=== PATIENT | female | born 1975 | race Caucasian/White ===

== ENCOUNTER 2019-08-08 05:35 | Inpatient (IN) | payer BC ==
[2019-08-07 14:00] VITALS: BMI 23.1
--- NOTE | 2019-08-08 07:38 | HP ---
History & Physical Update - History History: No Change - Physical Physical: No Change - Assessment Assessment: No Change - Plan Plan: No Change (H&P reviwed , no changes , for supracervical abdominal hysterectomy, bilateral salpingectomy,all necessary procedure)
[2019-08-08] MEDS ORDERED: ROPIVACAINE HCL 0.5% 30ML VIAL ONE (09:03)
[2019-08-08] MEDS ORDERED: MIDAZOLAM HCL 2 MG/2 ML SINGLE DOSE VIAL ONE ×2 (09:04)
[2019-08-08] MEDS ORDERED: ceFAZolin SODIUM 1 GM VIAL IVPB ONE (10:30)
[2019-08-08] MEDS ORDERED: IBUPROFEN 800 MG/8 ML IJ IVPB PRN (11:49)
[2019-08-08] MEDS ORDERED: IBUPROFEN 600 MG TABLET (FP) PO PRN (11:49)
[2019-08-08] MEDS ORDERED: ONDANSETRON 4 MG/2 ML VIAL IVPUSH PRN (11:49)
[2019-08-08] MEDS ORDERED: oxyCODONE HCL 5 MG TABLET PO PRN ×3 (11:49→12:15)
--- NOTE | 2019-08-08 11:54 | OP ---
Operative Note - Note: Operative Date: 08/08/19 Pre-Operative Diagnosis: pelvic pain, anemia, fibroid uterus, menometrorrhagia Operation: supracervical abdominal hysterectomy, bilateral salpingectomy Findings: large uterus, adenomyosis Surgeon: Pranav Greenberg Fireworks Inspector: Gilberto Crabtree Anesthesia: General Estimated Blood Loss (mls): 200 Drains & Tubes with Location: sequeira Drains, Volume Out (mls): 450 Blood Volume Replaced (mls): 0 Fluid Volume Replaced (mls): 1,500 Operative Report Dictated: Yes
--- NOTE | 2019-08-08 12:05 | PN ---
Progress Note (short form) - Note Progress Note: I asisted Dr. Greenberg at open hysterectomy for the entirety of the case.
[2019-08-08] MEDS ORDERED: KETOROLAC TROMETHAMINE 30 MG/1 ML VIAL ONE (12:08)
[2019-08-08] MEDS ORDERED: LACTATED RINGERS SOLUTION 1,000 ML IV SCH (12:15)
[2019-08-08] MEDS ORDERED: traMADol HCL 50 MG TABLET PO PRN (12:15)
[2019-08-08] MEDS ORDERED: KETOROLAC TROMETHAMINE 30 MG/1 ML VIAL IVPUSH ONE (12:37)
[2019-08-08] MEDS: ELECTROLYTE-148 SOLN 1,000 ML IV SCH (14:00)
[2019-08-08] MEDS: ACETAMINOPHEN 325 MG TABLET (FP) PO SCH ×2 (16:47→19:16)
[2019-08-08] MEDS ORDERED: ceFAZolin SODIUM 1 GM VIAL ONE (17:05)
[2019-08-08] MEDS ORDERED: DEXTROSE 5%-WATER - 100 ML IVPB ONE (17:06)
[2019-08-08] MEDS: CEFAZOLIN 1 GM in DEXTROSE 5%-WATER - 50 ML IVPB SCH (18:07)
[2019-08-08] MEDS: oxyCODONE HCL 10 MG SUSTAINED ACTING TABLET PO SCH (21:31)
[2019-08-09] MEDS: ACETAMINOPHEN 325 MG TABLET (FP) PO SCH ×4 (00:09→17:52)
[2019-08-09] MEDS ORDERED: ceFAZolin SODIUM 1 GM VIAL ONE ×2 (01:23→09:44)
[2019-08-09] MEDS ORDERED: DEXTROSE 5%-WATER - 50 ML IVPB ONE ×2 (01:23→09:44)
[2019-08-09] MEDS: CEFAZOLIN 1 GM in DEXTROSE 5%-WATER - 50 ML IVPB SCH ×2 (01:42→09:46)
[2019-08-09] MEDS: ELECTROLYTE-148 SOLN 1,000 ML IV SCH ×2 (01:42→15:27)
[2019-08-09] MEDS ORDERED: DOCUSATE SODIUM 100 MG CAPSULE (FP) PO PRN (08:01)
[2019-08-09] MEDS ORDERED: SIMETHICONE 80 MG TAB.CHEW (FP) PO PRN (08:07)
[2019-08-09 09:03] LABS: BLOOD UREA NITROGEN 6.7 mg/dL (7-18); CALCIUM 8.2 mg/dL (8.5-10.1); CREATININE 0.7 mg/dL (0.55-1.3); POTASSIUM 4.4 mmol/L (3.5-5.1)
[2019-08-09] MEDS: ENOXAPARIN NA (PORCINE) 40 MG/0.4 ML DISP.SYRIN SQ SCH (09:46)
[2019-08-09] MEDS: oxyCODONE HCL 10 MG SUSTAINED ACTING TABLET PO SCH ×2 (09:47→22:17)
--- NOTE | 2019-08-09 11:23 | PN ---
Progress Note (short form) - Note Progress Note: Post op day#1.S/P Hysterectomy under GA uneventful.patient stable and c/o some pain for which she is on medication.No any anesthesia related problem.Patient DC from the anesthesia care.
--- NOTE | 2019-08-09 15:55 | PN ---
Progress Note (short form) - Note Progress Note: pod 1 . s/p supracervical abdominal hysterectomy, doing well, ambulating, voids ok, novaginal bleeding or discharge, no dizziness CBC, BMP 08/09/19 08:06 Last Vital Signs Temp Pulse Resp BP Pulse Ox 97.8 F 60 18 106/50 L 100 08/09/19 10:00 08/09/19 10:00 08/09/19 10:00 08/09/19 10:00 08/09/19 09:00 abdomen soft, no distension, no cav , BS are present incision dry, clean no vaginal bleeding or discharge no calf tenderness pod1 afebrile ,doing well plan ambulate, cbc in am if afebrile , tolorate diet , will discharge home in am
--- NOTE | 2019-08-09 16:58 | OP ---
DATE OF OPERATION: 08/08/2019 PREOPERATIVE DIAGNOSIS: Menometrorrhagia, pelvic pain, large fibroid uterus, and anemia. POSTOPERATIVE DIAGNOSIS: Menometrorrhagia, pelvic pain, large fibroid uterus, and anemia. PROCEDURE: Supracervical abdominal hysterectomy and bilateral salpingectomy. SURGEON: Pranav Greenberg MD STUDENT ASSISTANCE COUNSELOR: Gilberto Crabtree MD ANESTHESIA: General. ESTIMATED BLOOD LOSS: 200 mL. DESCRIPTION OF PROCEDURE: Patient was taken to the operating room. Under adequate general anesthesia, abdomen and perineum were prepped and draped. Badillo catheter was inserted. Abdomen was prepped and draped for a hysterectomy. A Pfannenstiel abdominal skin incision was made. Abdominal wall was cut layer by layer until peritoneum was exposed and incised. Upon entering the abdominal cavity, upper abdomen was checked and was normal. Bowels were packed away. There was a large uterus, which was impacted into the pelvic cavity, and it was approximately 18 weeks' size. Uterus, which appeared to be adenomyosis with a couple of fibroids. Both ovaries were normal. Both tubes were normal. Bladder normal. No cul-de-sac adhesion. Then the uterus was delivered by putting 2 sweetheart clamps on uterus and delivering out of pelvis. Then both round ligaments were identified. Round ligaments were grasped with bipolar LigaSure cautery, cauterized, and severed. Then anterior leaf of broad ligament was opened with Metzenbaum scissors, and bladder was pushed down. Then a hole was made into the broad ligament and utero-ovarian ligament was identified bilaterally, clamped with Janessa clamp, cut, and the clamp replaced 1st with 0 Vicryl ties and 0 Vicryl suture bilaterally. Then the right tube was grasped with Jose clamp along the mesosalpinx with LigaSure cautery, cauterized, and cut, and both tubes were removed. Then uterine artery was identified. Bladder was further pushed down. Uterine artery was clamped with Janessa clamp bilaterally and cut and the clamp replaced with 0 Vicryl suture bilaterally. Then paracervical area was grasped with Janessa clamp, cut, and the clamp replaced with 0 Vicryl suture bilaterally. Then specimen was removed above the cervix and the cervix was cauterized and cervix was sutured with 1st two interrupted sutures of 0 Vicryl at each angle and then interrupted suture of 2-0 Vicryl. Hemostasis was established. No active bleeding was seen. All of the pedicles were checked and were dry. All the lap pad, sponge, and instrument counts were correct. Then peritoneum was closed with 0 Vicryl continuous suture. Muscles were brought together with interrupted suture of 0 Vicryl. Fascia was closed with 0 Vicryl continuous suture, subcutaneous fat interrupted suture of 0 Vicryl and then the skin was closed with 3-0 Biosyn subcuticular continuous suture. Patient tolerated procedure well. Left the OR in good condition. Tej [id number]
[2019-08-09 23:07] VITALS: TEMP 98.2
[2019-08-10] MEDS: ACETAMINOPHEN 325 MG TABLET (FP) PO SCH ×3 (00:21→12:39)
[2019-08-10 06:41] VITALS: BP 113/61; PULSE 59
[2019-08-10 08:22] LABS: BASO % 0.4 % (0-2.0); EOS % 1.6 % (0-4.5); HEMATOCRIT 26.7 % (32.4-45.2); HEMOGLOBIN 8.7 GM/dL (10.7-15.3); LYMPH % 23.5 % (8-40); MCH 26.6 pg (25.7-33.7); MCHC 32.6 g/dl (32.0-36.0); MEAN CELL VOLUME 81.6 fl (80-96); MEAN PLT VOLUME 11.3 fl (7.5-11.1); MONO % 10.7 % (3.8-10.2); NEUT % 63.8 % (42.8-82.8); PLATELET COUNT 227 K/MM3 (134-434); RBC 3.27 M/mm3 (3.60-5.2); RDW 15.1 % (11.6-15.6); WHITE BLOOD COUNT 7.7 K/mm3 (4.0-10.0)
--- NOTE | 2019-08-10 08:22 | PN ---
Progress Note (short form) - Note Progress Note: pod 2 ,doing well, ambulating, passing gas , no vaginal discharge CBC, BMP 08/09/19 08:06 Last Vital Signs Temp Pulse Resp BP Pulse Ox 98.2 F 59 L 20 113/61 100 08/10/19 06:40 08/10/19 06:40 08/10/19 06:40 08/10/19 06:40 08/09/19 21:00 abdomen soft, no distension, BS present no cva incision dry, clean , healing well no calf tenderness plan d/c home , follow up office 2 weeks
--- NOTE | 2019-08-10 08:22 | DS ---
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 Vital Signs: Vital Signs Temperature 98.2 F 08/10/19 06:40 Pulse Rate 59 L 08/10/19 06:40 Respiratory Rate 20 08/10/19 06:40 Blood Pressure 113/61 08/10/19 06:40 O2 Sat by Pulse Oximetry (%) 100 08/09/19 21:00 Constitutional: Yes: Well Nourished, No Distress, Calm HENT: Yes: Atraumatic Respiratory: Yes: Regular Gastrointestinal: Yes: WNL, Normal Bowel Sounds, Soft Renal/: Yes: WNL Pelvis: Yes: WNL External Genitalia: Yes: Normal Musculoskeletal: Yes: WNL Extremities: Yes: WNL Edema: No Integumentary: Yes: WNL Wound/Incision: Yes: Clean/Dry, Well Approximated, Sutures Intact, Steri Strips Neurological: Yes: WNL, Alert, Oriented ...Motor Strength: WNL Psychiatric: Yes: WNL, Alert, Oriented Labs: CBC, BMP 08/09/19 08:06 Discharge Summary Reason For Visit: FIBROIDS UTERUS pelvic pain , anemia, menometrorrhagia Procedures: Principal: supracervical abdominal hysterectomy Other Procedures: bilateral salpingectomy Hospital Course: no complication Health Concerns: anemia Plan of Treatment: iron , vit. high iron diet Goals: hb 12 Condition: Good - Instructions Diet, Activity, Other Instructions: regular diet, no intercourse , if severe pain , heavy vaginal bleeding, fever call , follow up office 2 weeks Referrals: Pranav Greenberg MD [Staff Physician] - Disposition: HOME - Home Medications Comprehensive Discharge Medication List: Ambulatory Orders Ibuprofen [Motrin -] 600 mg PO QID #28 tablet 08/09/19 Oxycodone HCl/Acetaminophen [Percocet 5-325 mg Tablet] 1 tab PO Q6H PRN #20 tablet MDD 4 08/09/19
[2019-08-10] MEDS: ENOXAPARIN NA (PORCINE) 40 MG/0.4 ML DISP.SYRIN SQ SCH (09:12)
[2019-08-10] MEDS: oxyCODONE HCL 10 MG SUSTAINED ACTING TABLET PO SCH (09:12)
--- NOTE | 2019-08-10 17:54 | PATH ---
Surgical Pathology Report Patient Name: RAIMUNDO CONDE [facility]. Rec. #: [id number] /Age/Gender: 1975 (Age: 44) / F Account: [id number] Location: [address] [place] [address] Taken: 08/08/2019 Received: 08/08/2019 Reported: 08/10/2019 Physicians: Pranav Greenberg M.D. Specimen(s) Received A: RIGHT FALLOPIAN TUBE B: LEFT FALLOPIAN TUBE C: UTERUS AND PART OF CERVIX Clinical History Uterine Final Diagnosis A. RIGHT FALLOPIAN TUBE, RESECTION: PORTION OF FALLOPIAN TUBE WITH PARATUBAL CYSTS. B. LEFT FALLOPIAN TUBE, RESECTION: PORTION OF FALLOPIAN TUBE WITH PARATUBAL CYSTS. C. UTERUS AND PART OF CERVIX, SUPRACERVICAL HYSTERECTOMY: LEIOMYOMAS. SECRETORY ENDOMETRIUM. Electronically Signed Oleg Johnson M.D. Gross Description A. Received in formalin labeled "right fallopian tube," is a 1.8 cm in length fimbriated fallopian tube. The outer surface is padilla purple with a 2.0 cm in greatest dimension paratubal cyst attached. Sectioning reveals an unremarkable lumen. Wall Attendant sections are submitted in 2 cassettes as follows: 1-fimbria; 2-cross sections of fallopian tube with paratubal cyst. B. Received in formalin labeled "left fallopian tube," is a 4.5 cm in length fimbriated fallopian tube. The outer surfaces padilla purple and smooth with a focal paratubal cyst attached to the fimbria. Sectioning reveals an unremarkable lumen. Wall Attendant sections are submitted in 2 cassettes as follows: 1-fimbria with paratubal cyst; 2-cross sections of fallopian tube. C. Received in formalin labeled "uterus and part of cervix," is an 876 g supracervically amputated uterus with no attached adnexa. The specimen measures 12.0 cm from superior to inferior, 11.5 cm from anterior to posterior and 10.8 cm from left to right. The serosa is farrell-padilla and smooth. The endometrial cavity measures 8.5 cm in length and 6 cm from cornu to cornu. The endometrium is farrell red and measures up to 0.3 cm in thickness. The myometrium displays 2 intramural nodules measuring 1.5 and 9.0 cm in greatest dimension. The cut surface of the nodules is farrell and rubbery with whorled architecture. No areas of hemorrhage or necrosis are identified. The remaining myometrium is farrell-pink and measures up to 8 cm in thickness. Wall Attendant sections are submitted in 10 cassettes as follows: 1-cervical stump margin of resection; 5-4-grcxrhdq endomyometrium; 7-1-jyywfxstu endomyometrium; 6-smaller intramural nodule; 7-10-larger intramural nodule. 08/09/2019 [facility]08/09/2019
== END 2019-08-10 13:27 | disposition home or self-care (01) | DRG 743 ==
LOC: JSAMEDAYSX 05:35 → J6S 14:31
PROVIDERS: ADMIT Obstetrics & Gynecology; ATTEND Obstetrics & Gynecology
PROC: 0UB70ZZ Excision of Bilateral Fallopian Tubes, Open Approach (ICD-10-PCS; 2019-08-08)
PROC: 0UT90ZL Resection of Uterus, Supracervical, Open Approach (ICD-10-PCS; principal; 2019-08-08 10:44)
DX: D25.9 Leiomyoma of uterus, unspecified (principal); N92.1 Excessive and frequent menstruation with irregular cycle; D64.9 Anemia, unspecified; R10.2 Pelvic and perineal pain
CPT/HCPCS: 36415; 80048; 84703; 85025; 86850; 86900; 86901; 88302-TC; 88307-TC; 94760